=== PATIENT | female | born 1965 | race Caucasian/White ===

== ENCOUNTER → 2016-12-14 | Outpatient (CLI) | payer OTHER ==
[~2016-12-14] MED LIST: CALCTAB7 PO; FMR25 PO; HYDR-5688 PO; METF1TAB53 PO; METFTAB PO; MISCCAP80 PO; OMEP40CA PO; OMEP40CA41 PO; RANI1TAB77 PO; TAMO20TA9 PO; VENL150C PO
[2016-12-14 10:53] LABS: BASO % 0.9 %; BASO ABS # 0.04 K/uL (0-0.2); COMPLETE YES; EOS % 1.8 %; HEMATOCRIT 35.8 % (37-47); IG% 0.2 %; LYMPH % 28.3 %; LYMPH ABS # 1.27 K/uL (1.2-3.4); MEAN CELL VOLUME 78.7 fL (80-100); MEAN CORPUSCULAR HEMOGLOBIN 24.2 pg (25-34); MEAN CORPUSCULAR HGB CONC 30.7 g/dl (32-36); MEAN PLATELET VOLUME 8.9 fL (7.4-10.4); MONO % 9.2 %; NEUT % 59.6 %; PLATELET COUNT 357 K/uL (130-400); RED BLOOD COUNT 4.55 M/uL (4.2-5.4); WHITE BLOOD COUNT 4.48 K/uL (4.8-10.8)
[2016-12-14 11:09] LABS: ESTIMATED AVERAGE GLUCOSE 114 mg/dl; HA1C FLAG Normal (Normal)
[2016-12-14 11:18] LABS: CALCIUM 9.1 mg/dl (8.5-10.1)
[2016-12-14 11:24] LABS: ALT/SGPT 25 U/L (12-78); AST/SGOT 28 U/L (15-37); BLOOD UREA NITROGEN 14 mg/dl (7-18); BUN/CREATININE RATIO 15.1 (10-20); CARBON DIOXIDE 26 mmol/L (21-32); CHLORIDE 107 mmol/L (98-107); CREATININE 0.91 mg/dl (0.60-1.20); GLUCOSE 95 mg/dl (70-99); POTASSIUM 3.9 mmol/L (3.5-5.1); SODIUM 141 mmol/L (136-145)
[2016-12-14 11:25] LABS: ALB/GLOB RATIO 0.9 (0.9-2); ALKALINE PHOSPHATASE 51 U/L (45-117)
[2016-12-14 11:36] LABS: ALKALINE PHOSPHATASE 51 U/L (45-117); ALT/SGPT 25 U/L (12-78); AST/SGOT 26 U/L (15-37); CHOLESTEROL 256 mg/dl (0-200); CHOLESTEROL/HDL RATIO 3.4; HDL CHOLESTEROL 76 mg/dl; LDL CHOLESTEROL CALCULATED 148 mg/dl; TRIGLYCERIDES 159 mg/dl (0-150); VERY LOW DENSITY LIPOPROT CALC 32 mg/dl
== END | disposition home or self-care (01) ==
LOC: C.LABBC 08:23
PROVIDERS: ATTEND Internal Medicine Hematology & Oncology
DX: C50.911 Malignant neoplasm of unspecified site of right female breast (principal); E88.81 Metabolic syndrome and other insulin resistance; F41.8 Other specified anxiety disorders; Z87.19 Personal history of other diseases of the digestive system; E78.00 Pure hypercholesterolemia, unspecified

== ENCOUNTER → 2017-01-07 | Outpatient (CLI) | payer OTHER ==
--- NOTE | 2017-01-07 09:01 | DIAGNOSTIC IMAGING REPORT ---
ULTRASOUND RIGHT UPPER QUADRANT ABDOMEN CLINICAL HISTORY: Right upper quadrant abdominal pain. COMPARISON STUDY: Abdominal CT dated 08/01/2014. TECHNIQUE: Real-time, grayscale, and color flow sonography of the right upper quadrant of the abdomen was performed. Images are reviewed in the transverse and longitudinal planes. FINDINGS: Liver: The liver is normal in size and echotexture. There is no intrahepatic biliary ductal dilatation. The main portal vein is patent. Gallbladder: There are numerous shadowing calcified gallstones. There is no gallbladder wall thickening or pericholecystic fluid. A sonographic Cavazos's sign is reportedly absent. Foci of adenomyomatosis are noted within the gallbladder fundus. The common bile duct measures up to 0.5 cm in diameter. Pancreas: Visualized portions of the pancreatic head and body are normal in appearance. Right kidney: Survey images of the right kidney demonstrate normal size and echotexture. There is no hydronephrosis. Ascites: None. IMPRESSION: Cholelithiasis without sonographic evidence of acute cholecystitis. Electronically signed by: Mike Valera M.D. 01/07/2017 9:00 AM Dictated Date/Time: 01/07/2017 8:59 AM
== END | disposition home or self-care (01) ==
LOC: C.ULTR 08:10
PROVIDERS: ATTEND Nurse Practitioner Family
DX: R10.11 Right upper quadrant pain (principal); K80.20 Calculus of gallbladder without cholecystitis without obstruction

== ENCOUNTER → 2017-01-20 | Outpatient (CLI) | payer OTHER ==
[~2017-01-20] MED LIST changes: +SINCALIDE INJ 2.2 MCG in SODIUM CHLORIDE 0.9% 100ML 100 ML IV ONE
--- NOTE | 2017-01-20 13:11 | DIAGNOSTIC IMAGING REPORT ---
NUCLEAR HEPATOBILIARY SCAN WITH EJECTION FRACTION IMAGING CLINICAL HISTORY: Right upper quadrant abdominal pain. COMPARISON STUDY: Abdominal ultrasound dated 01/07/2017. TECHNIQUE: Dynamic images of the liver and anterior abdomen were obtained every 5 minutes for a total of 60 minutes following the IV administration of 5.6mCi of technetium 99m Choletec. 2.2 mcg of sincalide was then injected with additional images acquired every 5 minutes for 45 minutes to calculate the gallbladder ejection fraction. FINDINGS: The hepatobiliary scan shows prompt and homogeneous hepatic uptake. There is visualized activity within the intra and extrahepatic biliary tree at 10 minutes, and within the gallbladder at 40 minutes. There is normal biliary to bowel transit, with small bowel visualized by 20 minutes. On the sincalide imaging, the gallbladder ejection fraction was measured at 21%. IMPRESSION: 1. There is no scintigraphic evidence of cholecystitis. 2. The gallbladder ejection fraction measured 21%. Normal is considered 35% or greater and this suggests gallbladder dysfunction. Electronically signed by: Mike Valera M.D. 01/20/2017 1:10 PM Dictated Date/Time: 01/20/2017 1:08 PM
== END | disposition home or self-care (01) ==
LOC: C.NUCL 10:10
PROVIDERS: ATTEND Nurse Practitioner Family
DX: R10.11 Right upper quadrant pain (principal)

== ENCOUNTER 2017-04-28 11:42 | Day surgery (SDC) | payer OTHER ==
[2017-03-07 07:55] VITALS: BMI 41.0
[2017-03-07 10:03] LABS: BASO % 0.4 %; BASO ABS # 0.02 K/uL (0-0.2); COMPLETE YES; EOS % 2.6 %; HEMATOCRIT 37.5 % (37-47); IG% 0.2 %; LYMPH % 26.1 %; LYMPH ABS # 1.31 K/uL (1.2-3.4); MEAN CORPUSCULAR HEMOGLOBIN 23.6 pg (25-34); MEAN CORPUSCULAR HGB CONC 30.7 g/dl (32-36); MEAN PLATELET VOLUME 8.9 fL (7.4-10.4); MONO % 8.2 %; NEUT % 62.5 %; PLATELET COUNT 324 K/uL (130-400); RED BLOOD COUNT 4.87 M/uL (4.2-5.4); WHITE BLOOD COUNT 5.02 K/uL (4.8-10.8)
[2017-03-07 10:57] LABS: ALT/SGPT 23 U/L (12-78); AST/SGOT 18 U/L (15-37); BLOOD UREA NITROGEN 14 mg/dl (7-18); BUN/CREATININE RATIO 17.4 (10-20); CALCIUM 8.4 mg/dl (8.5-10.1); CARBON DIOXIDE 25 mmol/L (21-32); CHLORIDE 110 mmol/L (98-107); CREATININE 0.78 mg/dl (0.60-1.20); GLUCOSE 89 mg/dl (70-99); POTASSIUM 3.9 mmol/L (3.5-5.1); SODIUM 141 mmol/L (136-145)
[2017-03-07 10:59] LABS: ALB/GLOB RATIO 0.9 (0.9-2); ALKALINE PHOSPHATASE 49 U/L (45-117)
[~2017-04-28] VITALS: Ht 165.1 cm; Wt 112.2 kg
[~2017-04-28 11:42] MED LIST changes: +CEFAZOLIN 2000 MG/60 ML D5W IV SCH; -FMR25 PO; +HEPARIN SOD 5000 UNIT/0.5 ML CARP SQ SCH; -HYDR-5688 PO; +LACTATED RINGER'S 1000ML 1,000 ML IV SCH; -METF1TAB53 PO; -OMEP40CA41 PO; -SINCALIDE INJ 2.2 MCG in SODIUM CHLORIDE 0.9% 100ML 100 ML IV ONE; +TAMO20TA47 PO; -TAMO20TA9 PO
[2017-04-28] MEDS ORDERED: FMR25 PO (12:13)
[2017-04-28 12:14] VITALS: BP 141/87; PULSE 70; TEMP 36.9; O2SAT 95; Ht 165.1 cm; Wt 112.2 kg
[2017-04-28] MEDS ORDERED: LIDOCAINE HCL 2% 2 ML VIAL (20MG/ML) ONE (12:27)
[2017-04-28] MEDS ORDERED: DEXAMETHASONE SOD INJ 4 MG/ML VIAL ONE (12:27)
[2017-04-28] MEDS ORDERED: FENTANYL CITRATE INJ 50 MCG/1 ML 2 ML VIAL ONE (12:27)
[2017-04-28] MEDS ORDERED: ONDANSETRON INJ 2 MG/ML 2 ML VIAL ONE (12:27)
[2017-04-28] MEDS ORDERED: MIDAZOLAM HCL 1 MG/ML 2ML VIAL ONE ×2 (12:27→13:19)
[2017-04-28] MEDS ORDERED: PROPOFOL IV EMULSION 10 MG/ML 20 ML VIAL IV ONE (12:27)
[2017-04-28] MEDS ORDERED: GLYCOPYRROLATE INJ 0.2 MG/ML VIAL ONE ×2 (12:27→13:50)
[2017-04-28] MEDS ORDERED: ROCURONIUM BROMIDE 10 MG/ML 5 ML VIAL IV ONE (12:27)
[2017-04-28] MEDS ORDERED: NEOSTIGMINE METHYLSULFATE 5 MG/5 ML SYR ONE (12:27)
[2017-04-28] MEDS ORDERED: BUPIVACAINE/EPINEPHRINE 0.5% MPF 1:200,000 10 ML VIAL ONE (12:52)
[2017-04-28] MEDS ORDERED: SCOPOLAMINE 1.5 MG TDSY TD ONE (12:54)
--- NOTE | 2017-04-28 12:59 | History & Physical Bridge Note ---
H&P Re-Evaluation Bridge Note: I have examined the patient, reviewed the History & Physical and in the interval since the performance of the History & Physical I have noted the following changes of clinical significance: No changes noted
[2017-04-28] MEDS ORDERED: NURSING VERBAL MED ORDER ONE (13:00)
[2017-04-28] MEDS ORDERED: LARYING-O-JET KIT (LTA) ONE ×2 (13:32)
[2017-04-28] MEDS ORDERED: PHENYLEPHRINE 100MCG/ML 5ML SYR IV PRN (14:15)
[2017-04-28] MEDS ORDERED: EpHEDrine SULFATE INJ 50 MG/ML AMP IV PRN (14:15)
[2017-04-28] MEDS ORDERED: MEPERIDINE HCL 25 MG/ML CARP IV PRN (14:15)
[2017-04-28] MEDS ORDERED: NALOXONE HCL 0.4 MG/1 ML VIAL/CARP IV PRN (14:15)
[2017-04-28] MEDS ORDERED: ATROPINE SULFATE 0.1 MG/ML 5ML SYR IV PRN (14:15)
[2017-04-28] MEDS ORDERED: LABETALOL HCL IV 5 MG/ML 20ML IV PRN (14:15)
[2017-04-28] MEDS ORDERED: FLUMAZENIL 0.1 MG/1 ML 10 ML VIAL IV PRN (14:15)
[2017-04-28] MEDS ORDERED: ONDANSETRON INJ 2 MG/ML 2 ML VIAL IV PRN ×2 (14:15→14:30)
[2017-04-28] MEDS ORDERED: HYDROmorphone INJ 2 MG/ML SYR/VIAL IV PRN (14:15)
[2017-04-28] MEDS ORDERED: SODIUM CHLORIDE 0.9% 1000ML 1,000 ML IV SCH (14:26)
--- NOTE | 2017-04-28 14:27 | [facility] Operative Report ---
Operative Report Operative Date Apr 28, 2017. Pre-Operative Diagnosis Symptomatic cholelithiasis. Post-Operative Diagnosis Same as preop. Procedure(s) Performed Laparoscopic cholecystectomy Surgeon Dr. Parker Ground Crew Chief Surgeon(s) Haydee Riley, PAC Estimated Blood Loss 10ML Findings normal appearing gallbladder with accessory bile duct Specimens A: Gallbladder. Anesthesia get Complication(s) None Disposition Recovery Room / PACU I attest to the content of the Intraoperative Record and any orders documented therein. Any exceptions are noted below.
[2017-04-28] MEDS ORDERED: HYDR-5688 PO (14:28)
[2017-04-28] MEDS ORDERED: HYDROCODONE/ACETAMOPHEN 5/325MG TAB PO PRN ×2 (14:30)
--- NOTE | 2017-04-28 14:30 | Discharge Instructions ---
Discharge Instructions Date of Service Apr 28, 2017. Admission Reason for Admission: Symptomatic Cholelithiasis Discharge Discharge Diagnosis / Problem: Symptomatic Cholelithiasis Discharge Goals Goal(s): Decrease discomfort, Improve function Activity Recommendations Activity Limitations: as noted below Lifting Limitations: no more than 10 pounds Exercise/Sports Limitations: until after follow-up appointment May Resume Sexual Activity: after follow-up appointment Shower/Bathe: tomorrow Driving or Machine Use: resume 1 day after discharge . Instructions / Follow-Up Instructions / Follow-Up You may shower tomorrow AM. Please follow-up with Dr. Parker in the office in 1-2 weeks. Please call the office at [phone] to make an appointment if you do not have one already. Please call the office with any questions or concerns. Current Hospital Diet Patient's current hospital diet: Discharge Diet Recommended Diet: Regular Diet Procedures Procedures Performed: Laparoscopic cholecystectomy Pending Studies Studies pending at discharge: no Medical Emergencies . Who to Call and When: Medical Emergencies: If at any time you feel your situation is an emergency, please call 911 immediately. . Non-Emergent Contact Non-Emergency issues call your: Primary Care Provider, Surgeon Call Non-Emergent contact if: temperature is above 101.5, your pain is not controlled, wound has increased drainage, wound has increased redness . "Provider Documentation" section prepared by Haydee Riley. . VTE Core Measure Inpt VTE Proph given/why not?: Unfractionated heparin SQ, SCD's [place] Drug Monitoring Program Search Results: patient reviewed within database, no issues identified
[2017-04-28] MEDS: FENTANYL CITRATE INJ 50 MCG/1 ML 2 ML VIAL IV PRN ×4 (14:41→15:00)
--- NOTE | 2017-04-28 14:48 | Anesthesiology Progress Note ---
Anesthesia Post Op Note Date & Time Apr 28, 2017 at 14:48 Vital Signs Pain Intensity: 2 Vital Signs Past 12 Hours Date Time Temp Pulse Resp B/P (MAP) Pulse Ox O2 Delivery O2 Flow Rate FiO2 04/28/17 14:35 64 16 145/82 98 Oxymask 10 04/28/17 14:26 36 64 16 167/86 98 Oxymask 10 04/28/17 12:14 36.9 70 18 141/87 (105) 95 Room Air Notes Mental Status: alert / awake / arousable, participated in evaluation Pt Amnestic to Procedure: Yes Nausea / Vomiting: adequately controlled Pain: adequately controlled Airway Patency, RR, SpO2: stable & adequate BP & HR: stable & adequate Hydration State: stable & adequate Anesthetic Complications: no major complications apparent
--- NOTE | 2017-04-28 14:53 | OPERATIVE REPORT ---
DATE OF OPERATION: 04/28/2017 PREOPERATIVE DIAGNOSIS: Symptomatic cholelithiasis. POSTOPERATIVE DIAGNOSIS: Same. PROCEDURE: Laparoscopic cholecystectomy. SURGEON: Dr. Fede Parker. MANUFACTURING JOB TITLES: Haydee Riley PA-C. ESTIMATED BLOOD LOSS: Approximately 10 mL. COMPLICATIONS: No immediate. ANESTHESIA: General. The patient tolerated the procedure well. OPERATIVE NOTE: After informed consent was obtained, the patient was taken to the operating suite and placed in the supine position. After successful intubation, the abdomen was sterilely prepped and draped in the usual fashion. A supraumbilical incision was made with an 11 blade scalpel and carried down through the soft tissue using electrocautery. The anterior rectus fascia was opened using electrocautery and two #0 Vicryl stay sutures were placed. Peritoneum was entered using blunt finger penetration and a finger sweep was performed. A 12-mm Juan trocar was placed and the abdomen was insufflated to 18 mmHg. Laparoscope was inserted and the abdomen was examined 360 degrees. No gross abnormalities were identified. A subxiphoid 5-mm port and 2 right upper quadrant 5-mm ports were placed under direct vision. The patient was placed in reverse Trendelenburg position and slightly airplaned to the left. The gallbladder was grasped and elevated superiorly and laterally. It was not acutely inflamed. It was rather long with a big infundibulum. I was able to bluntly dissect free the cystic duct. I was able to clearly see its junction with the common bile duct and then clip it twice proximally and once distally and transect it. We continued to bluntly dissect and we were able to identify the cystic artery. I was able to clip it twice proximally and once distally and transect it as well. We began by taking the gallbladder off the gallbladder fossa. We did this using electrocautery. I encountered another tubular structure, which I clipped and divided, expecting a branch of the cystic artery; however, when we divided it, it was clearly an accessory bile duct. We did clip it twice and transected it as well. I removed the gallbladder from the gallbladder fossa intact. It was placed into an EndoCatch bag. The gallbladder fossa was irrigated and any small bleeding points were controlled using electrocautery. A look around the abdomen showed no other abnormalities. At the end of the procedure, there was adequate hemostasis and no evidence of a bile leak. The gallbladder was removed and all the trocars were pulled. The fascia of the camera port was closed with 0 Vicryl in a [id number] fashion. All the wounds were irrigated and closed with 4-0 Monocryl. Marcaine was injected around them for postoperative analgesia and skin glue used as a dressing. The patient was awakened, extubated, and transferred to recovery in stable condition. I attest to the content of the Intraoperative Record and any orders documented therein. Any exception s are noted below.
[2017-04-28 15:37] VITALS: BP 167/75; PULSE 48; TEMP 36.7; O2SAT 97
[2017-04-28 16:10] VITALS: BP 158/79; PULSE 64; O2SAT 98
[2017-04-28 16:40] VITALS: BP 168/97; PULSE 60; TEMP 36.9; O2SAT 97
[2017-04-28 16:55] VITALS: BP 167/90
== END 2017-04-28 17:00 | disposition home or self-care (01) ==
LOC: C.ACU 11:42
PROVIDERS: ATTEND Surgery
DX: K80.20 Calculus of gallbladder without cholecystitis without obstruction (principal); K82.8 Other specified diseases of gallbladder; R10.11 Right upper quadrant pain; F41.8 Other specified anxiety disorders; E88.81 Metabolic syndrome and other insulin resistance; Z85.3 Personal history of malignant neoplasm of breast; Z83.79 Family history of other diseases of the digestive system; Z80.0 Family history of malignant neoplasm of digestive organs; Z79.899 Other long term (current) drug therapy

== ENCOUNTER → 2017-06-07 | Outpatient (CLI) | payer OTHER ==
[~2017-06-07] MED LIST changes: -CEFAZOLIN 2000 MG/60 ML D5W IV SCH; +FMR25 PO; -HEPARIN SOD 5000 UNIT/0.5 ML CARP SQ SCH; -LACTATED RINGER'S 1000ML 1,000 ML IV SCH; +METF1TAB53 PO; +OMEP40CA41 PO; -TAMO20TA47 PO
[2017-06-07 16:54] LABS: BASO % 0.7 %; BASO ABS # 0.04 K/uL (0-0.2); COMPLETE YES; HEMATOCRIT 35.8 % (37-47); IG% 0.2 %; LYMPH % 34.9 %; LYMPH ABS # 2.06 K/uL (1.2-3.4); MEAN CELL VOLUME 78.2 fL (80-100); MEAN CORPUSCULAR HEMOGLOBIN 23.6 pg (25-34); MEAN CORPUSCULAR HGB CONC 30.2 g/dl (32-36); MONO % 7.3 %; NEUT % 54.9 %; PLATELET COUNT 400 K/uL (130-400); RED BLOOD COUNT 4.58 M/uL (4.2-5.4); WHITE BLOOD COUNT 5.91 K/uL (4.8-10.8)
[2017-06-07 17:03] LABS: ALT/SGPT 45 U/L (12-78); AST/SGOT 51 U/L (15-37); BLOOD UREA NITROGEN 13 mg/dl (7-18); BUN/CREATININE RATIO 13.9 (10-20); CALCIUM 8.5 mg/dl (8.5-10.1); CARBON DIOXIDE 28 mmol/L (21-32); CHLORIDE 106 mmol/L (98-107); CREATININE 0.92 mg/dl (0.60-1.20); GLUCOSE 104 mg/dl (70-99); POTASSIUM 3.7 mmol/L (3.5-5.1); SODIUM 142 mmol/L (136-145)
[2017-06-07 17:06] LABS: ALB/GLOB RATIO 0.9 (0.9-2); ALKALINE PHOSPHATASE 69 U/L (45-117)
== END | disposition home or self-care (01) ==
LOC: C.LABBC 15:21
PROVIDERS: ATTEND Internal Medicine Hematology & Oncology
DX: C50.911 Malignant neoplasm of unspecified site of right female breast (principal)

== ENCOUNTER → 2017-08-06 | Outpatient (CLI) | payer OTHER ==
[~2017-08-06] MED LIST changes: -METFTAB PO; -OMEP40CA PO
[2017-08-06 10:59] LABS: BASO % 0.6 %; BASO ABS # 0.03 K/uL (0-0.2); COMPLETE YES; EOS % 3.4 %; HEMATOCRIT 37.2 % (37-47); IG% 0.2 %; LYMPH % 27.6 %; LYMPH ABS # 1.44 K/uL (1.2-3.4); MEAN CELL VOLUME 76.4 fL (80-100); MEAN CORPUSCULAR HEMOGLOBIN 23.6 pg (25-34); MEAN CORPUSCULAR HGB CONC 30.9 g/dl (32-36); MEAN PLATELET VOLUME 9.1 fL (7.4-10.4); MONO % 5.7 %; NEUT % 62.5 %; PLATELET COUNT 416 K/uL (130-400); RED BLOOD COUNT 4.87 M/uL (4.2-5.4); WHITE BLOOD COUNT 5.22 K/uL (4.8-10.8)
[2017-08-06 11:14] LABS: ALB/GLOB RATIO 0.9 (0.9-2); ALKALINE PHOSPHATASE 79 U/L (45-117); ALT/SGPT 26 U/L (12-78); AST/SGOT 19 U/L (15-37); BLOOD UREA NITROGEN 8 mg/dl (7-18); BUN/CREATININE RATIO 10.1 (10-20); CALCIUM 8.9 mg/dl (8.5-10.1); CARBON DIOXIDE 26 mmol/L (21-32); CHLORIDE 105 mmol/L (98-107); CHOLESTEROL 258 mg/dl (0-200); CHOLESTEROL/HDL RATIO 3.6; CREATININE 0.82 mg/dl (0.60-1.20); GLUCOSE 93 mg/dl (70-99); HDL CHOLESTEROL 71 mg/dl; LDL CHOLESTEROL CALCULATED 154 mg/dl; POTASSIUM 3.6 mmol/L (3.5-5.1); SODIUM 138 mmol/L (136-145); TRIGLYCERIDES 164 mg/dl (0-150); VERY LOW DENSITY LIPOPROT CALC 33 mg/dl
[2017-08-06 11:18] LABS: ESTIMATED AVERAGE GLUCOSE 117 mg/dl; HA1C FLAG Normal (Normal)
== END | disposition home or self-care (01) ==
LOC: C.LABBC 08:15
PROVIDERS: ATTEND Nurse Practitioner Family
DX: C50.411 Malignant neoplasm of upper-outer quadrant of right female breast (principal); E88.81 Metabolic syndrome and other insulin resistance; F41.8 Other specified anxiety disorders; E78.00 Pure hypercholesterolemia, unspecified; E66.9 Obesity, unspecified

== ENCOUNTER → 2017-08-16 | Outpatient (CLI) | payer OTHER | END | disposition home or self-care (01) | LOC: C.MAMM 08:22 | PROVIDERS: ATTEND Internal Medicine Hematology & Oncology | DX: C50.919 Malignant neoplasm of unspecified site of unspecified female breast (principal); Z13.820 Encounter for screening for osteoporosis ==

== ENCOUNTER 2020-02-26 10:38 | Observation (INO) ==
--- NOTE | 2020-02-01 14:10 | PAT Medication Instructions ---
Medication Instructions Date of Service February 01, 2020 Home Medications Medication Instructions Recorded venlafaxine 150 mg 150 mg PO QPM #90 cap 01/21/20 capsule,extended release 24 hr amoxicillin 500 mg capsule 500 mg PO QID 5 Days #20 cap 01/30/20 diclofenac sodium 1 % topical gel 4 gm TOP QID PRN #100 gm 01/30/20 letrozole 2.5 mg tablet 2.5 mg PO QPM atorvastatin 10 mg PO QAM cyanocobalamin (vitamin B-12) 1,000 mcg PO QAM docusate sodium 100 mg PO QAM nystatin 1 appln TOP BID PRN venlafaxine 150 mg capsule,extended release 24 hr 150 mg PO QPM amoxicillin 500 mg capsule 500 mg PO QID [Calcium 600 with Vitamin D3] 1 cap PO QAM diclofenac sodium 1 % topical gel 4 gm TOP QID PRN ferrous sulfate [Iron (ferrous sulfate)] 325 mg PO QAM metformin 1,000 mg PO BID naproxen sodium [Aleve] 220 mg PO BID ASK your surgeon for instructions naproxen sodium [Aleve] 220 mg PO BID STOP taking 24 hours before surgery nystatin 1 appln TOP BID PRN diclofenac sodium 1 % topical gel 4 gm TOP QID PRN DO NOT take the morning of surgery cyanocobalamin (vitamin B-12) 1,000 mcg PO QAM docusate sodium 100 mg PO QAM [Calcium 600 with Vitamin D3] 1 cap PO QAM ferrous sulfate [Iron (ferrous sulfate)] 325 mg PO QAM metformin 1,000 mg PO BID Take morning of surgery With a small sip of water, OTHERWISE NOTHING TO EAT OR DRINK AFTER MIDNIGHT: atorvastatin 10 mg PO QAM amoxicillin 500 mg capsule 500 mg PO QID Take evening before surgery letrozole 2.5 mg tablet 2.5 mg PO QPM venlafaxine 150 mg capsule,extended release 24 hr 150 mg PO QPM amoxicillin 500 mg capsule 500 mg PO QID metformin 1,000 mg PO BID Other Notes If you have any questions please call us at [phone] or [phone] or [phone] or [phone]
--- NOTE | 2020-02-04 10:09 | Anesthesiology Consultation ---
Date of Service February 04, 2020 Assessment & Plan (1) Encounter for pre-operative examination: COVID Status: As of 02/03 nurse assessment, patient denies travel to endemic area, known exposure/sick contacts, or symptoms of COVID19. Preoperative COVID19 testing to be completed prior to surgery. Chart Review Chart Review: Acceptable Risk for Surgery and Patient seen in Pre Admission Testing Teaching & Discussion Instructed NPO after midnight before surgery, except medications with 15 cc of water. Medication instructions provided according to the PAT guidelines. History Surgery Operation Date: 02/26/20 08:50 Proposed Procedures p Left Total Knee Arthroplasty - Randal Barragan MD Height/Weight Height: 5 ft 5 in Weight: 118.8 kg Allergies Allergy/AdvReac Type Severity Reaction Status Date / Time adhesive Allergy Mild red itchy Verified 01/30/20 16:18 No Known Drug Allergies Allergy Unknown . Verified 01/30/20 16:18 Medications Home Medications Medication Instructions Recorded Confirmed Last Taken letrozole 2.5 mg tablet 2.5 mg PO QPM tab 04/21/19 01/30/20 09/24/19 atorvastatin 10 mg PO QAM 09/13/19 01/30/20 09/24/19 cyanocobalamin (vitamin B-12) 1,000 mcg PO QAM 09/13/19 01/30/20 09/24/19 [Vitamin B-12] docusate sodium 100 mg PO QAM 09/13/19 01/30/20 09/24/19 nystatin 1 appln TOP BID PRN 09/13/19 01/30/20 Unknown venlafaxine 150 mg 150 mg PO QPM #90 cap 01/21/20 01/30/20 Unknown capsule,extended release 24 hr amoxicillin 500 mg capsule 500 mg PO QID 5 Days #20 cap 01/30/20 01/30/20 Unknown calcium carbonate-vitamin D3 1 cap PO QAM 01/30/20 01/30/20 Unknown [Calcium 600 with Vitamin D3] diclofenac sodium 1 % topical gel 4 gm TOP QID PRN #100 gm 01/30/20 01/30/20 Unknown ferrous sulfate [Iron (ferrous 325 mg PO QAM 01/30/20 01/30/20 Unknown sulfate)] metformin 1,000 mg PO BID 01/30/20 01/30/20 Unknown naproxen sodium [Aleve] 220 mg PO BID 01/30/20 01/30/20 Unknown Past Medical History Medical History BRCA negative Breast cancer (Inactive) 2 left breast cancers 1. Left breast, invasive ductal carcinoma, grade 1, ER/MA positive, Her2 negative, [id number], stage IA 2. Left breast, invasive ductal carcinoma, grade 1, ER/MA positive, Her2 negative, [id number], stage IA. S/P Lumpectomy with sentinel lymph node biopsy (06/13/15) - Dr. Chairez" Cervical polyp History of breast cancer 2018 - s/p B/L mastectomy- on letrozole Hyperlipemia Insulin resistance On metformin Limb alert care status RUE restricted use Lumbar radiculopathy Lumbar transverse process fracture (Resolved) Mood disorder on effexor Morbid obesity with BMI of 40.0-44.9, adult Nausea and vomiting after administration of anesthetic agent Osteoarthritis Polyarthritis Teeth grinding wears mouth guard QHS Exercise / Class Metabolic Activity II 4-5 Yardwork/Stairs/Walk up hill (denies CP or SOB with 1 FOS) Past Family History Family History Father Diabetes Myocardial infarction Grandfather (Paternal) Pancreatic cancer Grandmother (Paternal) Stroke Mother Diabetes Breast cancer Hypertension Family history of reaction to anesthesia nausea/vomiting Denies family history of Colon cancer Ovarian cancer Past Surgical History Surgical History H/O bilateral hip replacements History of bilateral mastectomy with reconstruction History of breast biopsy right--malignant History of breast reconstruction bilateral immediate reconstruction with TE 07/30/2015 Removal infected left dietary cook 10/31/2015 replacement leaking right dietary cook, 1st stage delayed reconstruction on 05/05/2016 Bilateral exchange for silicone implants 08/10/2016 Bilateral implant exchange and capsulectomy for left ruptured implant/capsular contracture 10/11/2019-Amrik Amor [facility] 600 cc smooth round gel implants; scar revision History of cholecystectomy lap cholecystectomy: 04/28/17: DVLx2 (first attempt by med student, second attempt successful by Dr. Scott Ortiz)/MAC#3, ETT 7.5 at [facility]/weight at time 112kg History of colonoscopy History of D&C History of esophagogastroduodenoscopy (EGD) History of left hip replacement History of repair of anterior cruciate ligament of left knee History of right hip replacement Past Anesthesia History No Hx of Anesthesia Complications (other than nausea) and No Family Hx of Anesthesia Complications History of PONV No Hx of Motion Sickness and History of PONV (mostly just nausea) Social History Smoking Status: Never smoker Do You Dip or Chew Tobacco: No Hx Alcohol Use: Yes Alcohol type: beer, wine and hard liquor alcohol intake frequency: a few times a week Hx Substance Use: No substance use type: does not use Review of Systems Pt denies any recent chest pain, shortness of breath, palpitations, cough, fever or URI. Physical Exam Vital Signs BP: 113/75 P: 76bpm SPO2: 99% RA T: 98.0 F R: 16 Constitutional + morbidly obese ENMT Mouth: + chipped teeth (upper L side); no dental restorations and no loose teeth Thyromental Distance: > or= 3.5 Finger Breadths (3.5) Mallampati Class: I Neck normal visual inspection; neck extension not limited Respiratory normal respiratory effort Auscultation: lungs clear to auscultation bilaterally Cardiovascular Rate/Rhythm: regular rate and regular rhythm Heart Sounds: + murmur (I/ systolic RSB) Extremities: no edema Testing Laboratory Results PT 10.8 Seconds (9.0-12.0) 02/04/20 10:20 INR 1.0 (0.9-1.1) 02/04/20 10:20 APTT 29.1 Seconds (21.0-31.0) 02/04/20 10:20 Blood Type A Positive 02/04/20 10:20 Antibody Screen NEGATIVE 02/04/20 10:20 01/28/20 WBC: 5.98 H/H: 13.8/41.7 PLATELETS: 328 SODIUM: 138 POTASSIUM: 4.0 CHLORIDE: 108 CO2: 24 BUN: 18 CREATININE: 0.84 GLUCOSE: 94 Electrocardiogram Date: 09/17/19 Findings: + NSR @ (69bpm with sinus arrhythmia) Chest X-Ray Findings: + other (03/07/17)
--- NOTE | 2020-02-04 10:33 | XRay Report ---
XR chest Pre-admission PA/Lat CLINICAL HISTORY: Preoperative evaluation. COMPARISON STUDY: Chest CT August 01, 2014. Chest radiograph May 12, 2012. FINDINGS: Lung volumes are normal. Lungs are clear. There is no pneumothorax or pleural effusion. Car diac size is normal. Mediastinal contours are normal. There is no evidence for pulmonary edema. Incid ental note is made of cholecystectomy clips. A linear radiodensity projecting over the right lower ne ck on PA projection. IMPRESSION: No acute cardiopulmonary findings. ACT 112: Negative or not required by law. Electronically signed by: Km Herndon M.D. 02/04/2020 10:32 AM
[2020-02-04 11:48] LABS: Partial Thromboplastin Time 29.1 Seconds (21.0-31.0); Prothrombin Time 10.8 Seconds (9.0-12.0)
--- NOTE | 2020-02-10 13:26 | History and Physical Report ---
DATE OF ADMISSION: 02/26/2020 CHIEF COMPLAINT: Left knee pain and discomfort. HISTORY OF PRESENT ILLNESS: The patient is a 54-year-old female who has been a long-term patient of mine, who now presents for surgical treatment of her left knee. She has a history of a left knee injury skiing many years ago and had an ACL reconstruction back in 10/2009. She did pretty well for a while, but over the past 5 years, she has developed increased pain and discomfort in her left knee. She has been through extensive conservative treatment including various medicines as well as several shots, which helped for about 3-4 weeks. Pain has become more debilitating. It bothers her whenever she is up and on it and walking any distance. It occasionally gives out on her due to the pain. She now like to have her left knee fixed. Of note, the patient has a history of bilateral hip replacements done by myself as well. PAST MEDICAL HISTORY: Past medical history significant for: 1. Breast cancer, status post surgery and reconstruction, in remission. 2. Elevated cholesterol. 3. Moderate obesity, BMI of 44. PAST SURGICAL HISTORY: Previous surgeries include: 1. Right total hip replacement done 06/16/2012. 2. Left hip replacement done on 09/29/2012. 3. Breast cancer surgery. 4. Breast reconstruction. ALLERGIES: None. CURRENT MEDICINES: Include: 1. Atorvastatin 10 mg. 2. Calcium with vitamin D. 3. Vitamin B12. 4. Iron. 5. Letrozole 2.5 mg in the evening. 6. Nystatin topical ointment. 7. Venlafaxine 150 mg in the evening. SOCIAL HISTORY: A 54-year-old female. 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 She is . Does not smoke. FAMILY HISTORY: Noncontributory. REVIEW OF SYSTEMS: Negative for diabetes, neurologic problem, vascular problem, bleeding disorders. No history of DVT or PE. No known bleeding problems. PHYSICAL EXAMINATION: GENERAL: Physical examination shows a pleasant, middle-aged female. Looks to be in pretty good health. HEENT: Benign. NECK: Supple. No lymphadenopathy. LUNGS: Clear to auscultation. HEART: Has a regular rate and rhythm. ABDOMEN: Soft, nontender, nondistended. EXTREMITIES: Grossly neurovascularly intact except as follows. Examination of the left knee reveals the patient walks with a slight bit of a limp. She has got well-healed incisions around her knee with a small knee effusion. Her range of motion is full extension to 125 degrees of flexion. There is no instability. No pivot shift. No varus or valgus instability. No pain with hip motion. She is little tender over the greater trochanteric bursa. X-RAYS: X-rays of the left knee reviewed. It shows advanced medial compartment DJD. She has got tunnels from her previous ACL reconstruction. She has got osteophytes off the medial femoral condyle and medial tibial plateau. ASSESSMENT: A 54-year-old female with history of bilateral hip replacements in the past with left knee degenerative joint disease after previous ACL reconstruction. She failed conservative treatment and would like to have her left knee replaced. PLAN: We are going to take her to the Operating Room and do a left total knee replacement. The risks and benefits of this procedure were explained to the patient including but not limited to DVT, PE, , infection, neurological injury, vascular injury, bleeding problem, pain, limited range of motion, stiffness, failure to relieve symptoms, incomplete relief of symptoms, need for further surgery in future, fracture, leg length inequality, nerve palsy, persistent pain and need for revision surgery in the future. The patient understands and desires to proceed. Informed consent was obtained. As far as discharge plans, she is planning to be discharged to home using the [facility]. GUSTABO
[~2020-02-26 10:38] MED LIST changes: +ACETAMINOPHEN 500 MG TAB PO SCH; +BUPIVACAINE 0.25% 30 ML VIAL ONE; +BUPIVACAINE 0.5 % 5 MG/1 ML PF 10ML VIAL ONE; +BUPIVACAINE LIPOSOME/PF 266 MG, BUPIVACAINE/EPINEPHRINE 50 ML, SODIUM CHLORIDE 0.9% 30 ... INFIL SCH; -CALCTAB7 PO; +CEFAZOLIN 2000MG 2,000 MG/15 ML SYR IV SCH; +FAMOTIDINE 20 MG TAB PO SCH; -FMR25 PO; +GABAPENTIN 900 MG DOSE PO SCH; +LR 500ML BOLUS, THEN 15ML/HR IV SCH; +LR 60ML/HR IV SCH; -METF1TAB53 PO; -MISCCAP80 PO; -OMEP40CA41 PO; -RANI1TAB77 PO; +SCOPOLAMINE 1.5 MG TDSY TD SCH; +TRANEXAMIC ACID 1,000 MG **IV Intra-op IV SCH; -VENL150C PO
--- NOTE | 2020-02-26 10:50 | History & Physical Bridge Note ---
Date of Service February 26, 2020 History & Physical Bridge Note I have examined the patient, reviewed the History & Physical and in the interval since the performance of the History & Physical I have noted the following changes of clinical significance: no changes noted
[2020-02-26] MEDS ORDERED: METOCLOPRAMIDE HCL 10 MG TABLET ONE (11:13)
[2020-02-26] MEDS ORDERED: ePHEDrine sulfate 50 MG/ML AMP IV PRN (11:41)
[2020-02-26] MEDS ORDERED: fentaNYL citrate 100 MCG/2 ML VIAL IV PRN (11:41)
[2020-02-26] MEDS ORDERED: ATROPINE SULFATE 0.1 MG/ML 10ML SYR IV PRN (11:41)
[2020-02-26] MEDS ORDERED: ONDANSETRON INJ 2 MG/ML 2 ML VIAL IV PRN ×2 (11:41→16:16)
[2020-02-26] MEDS ORDERED: MIDAZOLAM HCL 1 MG/ML 2ML VIAL ONE (12:23)
[2020-02-26] MEDS ORDERED: BUPIVACAINE 0.25% 30 ML VIAL ONE (12:56)
[2020-02-26] MEDS ORDERED: BACITRACIN INJ 50,000 UNIT VIAL ONE (12:56)
[2020-02-26] MEDS ORDERED: BUPIVACAINE LIPOSOME 1.3% 266 MG/20 ML VIAL ONE (12:56)
[2020-02-26] MEDS ORDERED: SODIUM CHLORIDE 0.9% PF 50 ML VIAL ONE (12:56)
[2020-02-26] MEDS ORDERED: EPINEPHrine INJ 1 MG/ML AMP ONE (12:57)
[2020-02-26] MEDS ORDERED: VANCOMYCIN HCL 1000MG/20ML VIAL ONE (12:58)
[2020-02-26] MEDS ORDERED: PROPOFOL IV EMULSION 10 MG/ML 20 ML VIAL IV ONE (14:22)
[2020-02-26] MEDS ORDERED: LIDOCAINE HCL 2% 2 ML VIAL/AMP(20MG/ML) INFIL ONE (14:26)
[2020-02-26] MEDS ORDERED: ONDANSETRON INJ 2 MG/ML 2 ML VIAL ONE (14:26)
--- NOTE | 2020-02-26 15:07 | Post Operative Brief Note ---
PG Immediate Post Op with CF Date of Surgery February 26, 2020 Pre & Post Diagnosis Operation Date: 02/26/20 12:30 Pre-Op Diagnosis: Left Knee Advanced Degenerative Joint Disease Post-Op Diagnosis: Left Knee Advanced Degenerative Joint Disease I identified the patient and participated in the time-out.: Yes Procedure Operation Date: 02/26/20 12:30 Actual Procedures p Left Total Knee Arthroplasty(Left) - Randal Barragan MD Surgeon Randal Barragan MD Search Strategist Josh, PAC Estimated Blood Loss 50 Findings Consistent with Post-Op Diagnosis Fluids 1300 cc Specimens Specimen Description: A. Left Knee Bone and Tissue Drains Cuellar Catheter Anesthesia Type Spinal MAC Complications none Disposition Accompanied Patient To Recovery: No Disposition: Recovery Room
--- NOTE | 2020-02-26 15:37 | Anesthesiology Progress Note ---
Date of Service February 26, 2020 Anesthesia Post Procedure Vital Signs Vital Signs: Temp Pulse Pulse Resp BP Pulse Ox 02/26/20 15:35 97.5 F L 58 L 16 111/67 99 02/26/20 15:25 65 16 101/61 98 02/26/20 15:15 97.7 F 69 16 99/57 L 97 02/26/20 11:44 64 18 151/94 H 96 02/26/20 10:55 98.4 F 73 20 137/69 96 Transfer of Care Handoff Completed per policy Notes Mental Status: alert / awake / arousable and participated in evaluation Patient Amnestic to Procedure: Yes Nausea / Vomiting: adequately controlled Pain: adequately controlled Airway Patency, RR, SpO2: stable & adequate BP & HR: stable & adequate Hydration State: stable & adequate Neuraxial Anesthesia: was administered and sensory block is resolving Anesthetic Complications: no major complications apparent and Pt Satisfied with anesthetic care
--- NOTE | 2020-02-26 15:51 | XRay Report ---
XR knee LT 1 or 2V routine HISTORY: 54 years-old Female Surgical Post Op left knee total joint arthroplasty COMPARISON: Knee radiographs 12/28/2019 TECHNIQUE: 2 views of the left knee FINDINGS: Left knee total joint arthroplasty and patella resurfacing. Anterior midline skin iqra along with expected postsurgical soft tissue swelling and deep tissue air with surgical drainage catheter. No ac ione fracture or retained foreign body. IMPRESSION: Left knee total joint arthroplasty and patella resurfacing with expected postoperative fi ndings. ACT 112: Negative or not required by law. The above report was generated using voice recognition software. It may contain grammatical, syntax o r spelling errors. Electronically signed by: Daniel Sanders M.D. 02/26/2020 3:50 PM
[2020-02-26] MEDS ORDERED: GLUCAGON FOR INJ 1 MG VIAL SQ PRN (16:16)
[2020-02-26] MEDS ORDERED: TAMSULOSIN HCL 0.4 MG CAP PO PRN (16:16)
[2020-02-26] MEDS ORDERED: NALOXONE HCL 0.4 MG/1 ML VIAL/CARP IV PRN (16:16)
[2020-02-26] MEDS ORDERED: NYSTATIN POWDER 15GM BTL EXT PRN (16:16)
[2020-02-26] MEDS ORDERED: GLUCOSE 10 TABS/TUBE PO PRN (16:16)
[2020-02-26] MEDS ORDERED: OXYCODONE HCL IR 5 MG TAB (IMMEDIATE RELEASE) PO PRN (16:16)
[2020-02-26] MEDS ORDERED: MAGNESIUM HYDROXIDE SUSP 30 ML UDC PO PRN (16:16)
[2020-02-26] MEDS ORDERED: HYDROmorphone INJ 0.5 MG/0.5 ML SYR IV PRN (16:16)
[2020-02-26] MEDS ORDERED: bisacodyL 10 MG SUPP PR PRN (16:16)
[2020-02-26] MEDS ORDERED: GLUCOSE 40% GEL 15 GM TUBE PO PRN (16:16)
[2020-02-26] MEDS ORDERED: METOCLOPRAMIDE HCL INJ 5 MG/ML 2 ML VIAL IV PRN (16:16)
[2020-02-26] MEDS ORDERED: CARBOHYDRATES FOR HYPOGLYCEMIA PO PRN (16:16)
[2020-02-26] MEDS ORDERED: ALUMINUM/MAGNESIUM SUSP 30 ML UDC PO PRN (16:16)
[2020-02-26] MEDS ORDERED: DEXTROSE 50% 50 ML SYRINGE IV PRN (16:16)
[2020-02-26] MEDS ORDERED: DICLOFENAC SOD 1% GEL 100 GM TUBE EXT PRN (16:16)
[2020-02-26] MEDS ORDERED: PHARMACY GLYCEMIC MGMT CONSULT PRN (17:01)
[2020-02-26] MEDS: SODIUM CHLORIDE 0.9% 1000ML 1,000 ML IV SCH (17:25)
[2020-02-26] MEDS: CHECK SCOPOLAMINE PATCH PLACEMENT SCH ×2 (17:27→23:26)
--- NOTE | 2020-02-26 17:29 | Operative Report ---
Post Operative Report Pre & Post Diagnosis Operation Date: 02/26/20 12:30 Pre-Op Diagnosis: Left Knee Advanced Degenerative Joint Disease Post-Op Diagnosis: Left Knee Advanced Degenerative Joint Disease I identified the patient and participated in the time-out.: Yes Procedure Operation Date: 02/26/20 12:30 Actual Procedures p Left Total Knee Arthroplasty(Left) - Randal Barragan MD Surgeon Randal Barragan MD Manager Metrology Josh, PAC Estimated Blood Loss 50 Findings Consistent with Post-Op Diagnosis Operative findings revealed advanced left knee DJD. As she had diffuse and extensive grade 4 odne-ad-alpy disease of the medial femoral condyle medial till plateau. Her ACL was intact. She had a large knee joint effusion. She had a varus deformity to her knee. She had grade 4 changes of patellofemoral joint as well. Fluids 1300 cc. Specimens Left knee sent for pathology. Drains None. Anesthesia Type Spinal MAC Complications none Disposition Accompanied Patient To Recovery: No Disposition: Recovery Room Indications Patient is a 54-year-old female is had a host of orthopedic musculoskeletal problems. She is had both of her hips replaced. She injured her left knee 10 years ago and had an ACL reconstruction which did pretty well for 5 years. Over the past 5 years she is developed increased pain discomfort in her knee. X-rays show progressive degenerative arthritis. She is been through extensive conservative treatment. She elected proceed with total knee arthroplasty. Description of Procedure Operative implants consist of: 1. Biomet Vanguard size 70 left posterior by femoral component. 2. Biomet size 71 tibial tray. 3. 12 mm Po stabilized polyethylene insert. 4. 28 x 8 all poly-patella. Patient was taken to the operating room identified and placed on the operating table supine position. All contact areas were appropriately padded. IV antibiotics arrived by anesthesia team. A spinal anesthetic and abductor canal block had provided in the holding area. Cuellar catheter was placed in sterile fashion to the left thigh tip was then placed in the left lower extremities and prepped and draped in usual sterile fashion. The left leg was elevated and exsanguinated with use of an Esmarch and turns p laced at 300 mmHg. An anterior approach left knee was then performed to longitudinal incision centered over the patella. Sharp dissection was cut through subcutaneous tissue down the extensor mechanism. Medial parapatellar arthrotomy incision was made. Some subperiosteal dissection was carried out medially. The fat pad was resected from each patella tendon. The lateral patellofemoral ligament was released. Patella was subluxated laterally and the knee was flexed. The osteophytes were taken off the distal femur. The ACL and PCL were then released from distal femur the tibia subluxate anteriorly. The external tibial alignment jig was then placed in the interface the tibia and adjusted 14 mm medially. Proximal tibial cut was made to move about a millimeter or 2 of bone from the most efficient aspect the medial till plateau. Some osteophytes were taken off medial and posterior medially. The tibia sized to a size 71. Attention drawn the femur. The distal femur turned the sharp drill bit intramedullary canal was suction. A left 5 degree valgus cutting guide was placed. Distal femoral cutting block was pinned in place but distal femoral cut was made to take an additional 3 mm of bone off distal femur. The femur was then sized to a size 70. We did downsize this quite a bit. I did try and downsize this due to the more narrow medial and lateral dimensions of the femur. The AP cutting block was pinned parallel to the epicondylar axis which was 5 degrees of external rotation. The anterior cut, anterior chamfer, posterior cut, posterior chamfer cuts were made. Box cutting guide was placed in just slight lateral and the box cut was made. The knee was flexed. The remnants of the medial lateral menisci were excised. The osteophytes were taken off the posterior aspect the femur. A trial femoral component was placed for the tibial tray was pinned in maximum external rotation the drill and stem punch were used to create defect in proximal tip for the tibial tray. The knee was then trialed and the 12 mm insert fit most appropriately. Attention drawn the patella. The patella was cleaned of all soft tissues. Patella thickness measured 21 mm in thickness and was cut down to 13. Was sized to a size 28 patella. Lug holes were drilled for the 28 patella. The lateral osteophyte was removed. Patella button was placed. Knee was taken through range of motion patella tracked nicely with no thumbs test. Attention drawn to placing the permanent components. All trial components were removed. Bone plug was placed in the distal femur limit blood loss put a double batch [place] G cement was mixed. Local Plant Sourceguard size 70 left posterior by femoral component, size 71 tibial tray, a 12 mm posterior box polyethylene insert, and a 28 x 8 all poly-patella were then cemented in place. Of note, I did add an additional gram of vancomycin into the cement due to her history of previous knee surgery and her obesity and history of diabetes. The knee was brought out into full extension total cement hardened. Final cement check was then performed. The pericapsular tissues were injected with total 100 cc of combination twice of Exparel, 30 cc normal saline, 50 cc of quarter percent Marcaine with epinephrine. Patient did receive 1 g tranexamic acid per the tech was then let down for final tourniquet time of 66 minutes. Hemostasis assured use electrocautery. The wounds irrigated with close muscle pulsatile lavage solution. The extensor neck was then closed with combination 1 PDS suture #1 Vicryl suture in [id number] fashion. The extensor mechanism checked found to be intact with subcutaneous tissue then closed with 2 Dexon suture in a buried interrupted fashion skin was closed skin iqra. Leg was then cleaned dried a sterile dressing composed Xeroform, 4 x 4's, sterile cast padding, Damon bandage were applied. Patient transferred to the recovery room in stable condition. Patient tolerated procedure well no complications. I attest to the content of the Intraoperative Record and any orders documented therein. Any exceptions are noted below.
[2020-02-26] MEDS: KETOROLAC 30 MG/ML VIAL IV SCH ×2 (18:06→23:26)
[2020-02-26] MEDS: ASCORBIC ACID 500 MG TAB PO SCH (18:06)
--- NOTE | 2020-02-26 19:27 | Pharmacy Report ---
Glycemic Control Consultation - Date of Service February 26, 2020 - Scope Scope: Glycemic Pharmacist consulted for glycemic control and to write orders per [facility] inpatient glycemic control protocol. - Objective Weight: 117.4 kg Accuchecks BSG (last 24hrs): 02/26/20 02/26/20 10:55 16:36 POC Glucose 106 H 77 - Recent Pertinent Medications Outpatient Anti-diabetic Regimen: * metformin 1 gm bid * A1c = 5.3 % 08/2019 Risk Factors for Insulin Resistance: * Recent Surgery- pod 0 * Diet: yes - Assessment & Plan Assessment & Plan: ASSESSMENT: * Type 2 diabetic now s/p left knee arthroplasty. Pharmacy consulted for glycemic management postop. Managed only on metformin at home * No steroids preop/intraop - BSGs 106 -77 mg/dL - plan to utilize novolog postop PLAN FOR INPATIENT GLYCEMIC CONTROL: * Holding outpatient oral diabetes medications * Basal insulin * Lantus - hold / not indicated * Bolus insulin * NovoLog per scale ACHS or Q6hrs while NPO * Goal Range: Low 110 mg/dL - High 140 mg/dL * Correction Factor: 30 mg/dL/unit * Nutritional / Prandial insulin per carb ratio of 1 unit per -- grams CHO consumed * Please note that the plan above was derived based on current level of insulin resistance and hospital stress. These recommendations are appropriate for inpatient admission only. Plan of care upon discharge will need to be reassessed to avoid potential outpatient hypo/hyperglycemia. Thank you.
[2020-02-26] MEDS ORDERED: SENNA 8.6 MG TAB PO SCH (21:00)
[2020-02-26] MEDS ORDERED: LETROZOLE 2.5 MG TAB PO SCH (21:00)
[2020-02-26] MEDS ORDERED: VENLAFAXINE HCL XR 150 MG CAPXR PO SCH (21:00)
[2020-02-26] MEDS: DOCUSATE SODIUM 100 MG CAP PO SCH (21:51)
[2020-02-26] MEDS: TAPENTADOL HCL ER 50 MG TABCR PO SCH (21:51)
[2020-02-26] MEDS: ASPIRIN 81 MG ECTAB PO SCH (21:51)
[2020-02-26] MEDS: ACETAMINOPHEN 500 MG TAB PO SCH (21:51)
[2020-02-26] MEDS ORDERED: TRANEXAMIC ACID / 0.7% NACL 1,000 MG/100 ML BAG IV SCH (22:00)
[2020-02-26] MEDS: INSULIN ASPART 100 UNITS/ML 3 ML PEN SC SCH (22:03)
[2020-02-26] MEDS: CEFAZOLIN 2000MG 2,000 MG/15 ML SYR IV SCH (22:24)
[2020-02-27] MEDS: SODIUM CHLORIDE 0.9% 1000ML 1,000 ML IV SCH (01:07)
[2020-02-27 05:59] LABS: Hematocrit (blood only) 36.1 % (37-47); Hemoglobin 11.3 g/dL (12.0-16.0); Mean Corpuscular Hemoglobin 28.3 pg (25-34); Mean Corpuscular Hgb Conc 31.3 g/dL (32-36); Mean Corpuscular Volume 90.3 fL (80-100); Mean Platelet Volume 9.2 fL (7.4-10.4); Platelet Count 262 K/uL (130-400); RDW Coefficient of Variation 13.2 % (11.5-14.5); RDW Standard Deviation 44.2 fL (36.4-46.3); White Blood Count 6.91 K/uL (4.8-10.8)
[2020-02-27] MEDS: CEFAZOLIN 2000MG 2,000 MG/15 ML SYR IV SCH (06:13)
[2020-02-27] MEDS: ACETAMINOPHEN 500 MG TAB PO SCH ×2 (06:13→13:13)
[2020-02-27] MEDS: KETOROLAC 30 MG/ML VIAL IV SCH ×2 (06:13→12:18)
[2020-02-27 06:27] LABS: BUN Creatinine Ratio 15.9 (10-20); Calcium 8.2 mg/dl (8.5-10.1); Est GFR (African American) 96.9; Est GFR (Non-African American) 83.6; Potassium 3.8 mmol/L (3.5-5.1)
[2020-02-27 07:26] LABS: Estimated Average Glucose 111 mg/dl; Hemoglobin A1C 5.5 % (4.5-5.6)
--- NOTE | 2020-02-27 07:57 | Progress Notes ---
DATE: 02/27/2020 SUBJECTIVE: A 54-year-old female postop day 1 from a left knee replacement. She is doing pretty well. Had a pretty good night. She is up and walking yesterday. A moderate amount of pain. No chest pain or shortness of breath. Not feeling dizzy or lightheaded. OBJECTIVE: VITAL SIGNS: Temperature 36.4. Vital signs stable. GENERAL: Shows a pleasant, middle-aged female. She is lying in bed, looks pretty comfortable. LUNGS: Clear to auscultation. HEART: Regular rate and rhythm. ABDOMEN: Soft, nontender, nondistended. EXTREMITIES: Grossly neurovascularly intact except as follows. Examination of the left leg reveals the leg to be well aligned. Dressing is clean, dry and intact. She can dorsiflex and plantarflex her foot appropriately. She is neurologically intact. LABORATORY DATA: Hemoglobin 11.3. Hematocrit 36.1. Electrolytes are stable. ASSESSMENT: A 54-year-old female postop day 1 from a left knee replacement, doing pretty well. Pain is reasonably well controlled. She is neurologically intact. PLAN: 1. DVT prophylaxis including thigh-high TEDs, SCDs, and aspirin twice a day. 2. PT/OT. Weightbear as tolerated. Left total knee protocol. 3. Pain control, doing pretty well with current pain regimen. 4. Disposition: She is planning to be discharged home with some home health depending on how she does. She is interested in trying to go home this afternoon if she does okay in therapy.
[2020-02-27] MEDS ORDERED: ATORVASTATIN 10 MG TAB PO SCH (09:00)
[2020-02-27] MEDS ORDERED: CALCIUM 600MG + VIT D 400 IU TAB PO SCH (09:00)
[2020-02-27] MEDS ORDERED: CYANOCOBALAMIN 500 MCG TABLET (VITAMIN B-12) PO SCH (09:00)
[2020-02-27] MEDS ORDERED: MULTIVITAMIN TAB PO SCH (09:00)
[2020-02-27] MEDS ORDERED: FERROUS SULFATE 325 MG TAB PO SCH (09:00)
[2020-02-27] MEDS ORDERED: NON-FORMULARY MEDICATION (Docusate Sodium 100 MG) PO SCH (09:00)
[2020-02-27] MEDS: ASCORBIC ACID 500 MG TAB PO SCH (09:03)
[2020-02-27] MEDS: TAPENTADOL HCL ER 50 MG TABCR PO SCH (09:03)
[2020-02-27] MEDS: CHECK SCOPOLAMINE PATCH PLACEMENT SCH (09:04)
[2020-02-27] MEDS: DOCUSATE SODIUM 100 MG CAP PO SCH (09:04)
[2020-02-27] MEDS: ASPIRIN 81 MG ECTAB PO SCH (09:05)
[2020-02-27] MEDS: INSULIN ASPART 100 UNITS/ML 3 ML PEN SC SCH ×2 (09:29→12:40)
[2020-02-27] MEDS ORDERED: METFORMIN HCL 500 MG TAB PO SCH (17:00)
== END 2020-02-27 14:12 | disposition home health service (06) ==
LOC: 3E 10:38 → ASU 10:38